=== PATIENT | male | born 1970 | race Caucasian/White ===

== ENCOUNTER → 2016-12-11 | Outpatient (CLI) | payer BC ==
--- NOTE | 2016-12-11 09:43 | US ---
EXAMINATION TYPE: US prostate transrectal DATE OF EXAM: 12/11/2016 9:18 AM COMPARISON: NONE CLINICAL HISTORY: N40.1 Begin prostatic hyperplasia. slow flow even with meds, nocturia This examination was performed using the transrectal probe. EXAM MEASUREMENTS: Gland Size: 3.9 x 4.7 x 2.9cm Volume: 28.8 Predicted PSA: 3.4 Actual PSA (if available):0.9 Findings: Heterogeneous PZ with no definite lesions seen. Central glandular calcifications. Seminal v esicles are symmetric and unremarkable. IMPRESSION: No distinct lesion identified. Predicted PSA = volume x 0.12 ng/ml Calculated Volume = 0.5236 x L x W x H
== END | disposition home or self-care (01) ==
LOC: RADUSMAIN 08:56
PROVIDERS: ATTEND Family Medicine
DX: N40.1 Benign prostatic hyperplasia with lower urinary tract symptoms (principal)
CPT/HCPCS: 76872

== ENCOUNTER → 2018-11-13 | Day surgery (SDC) | payer BC ==
[2018-11-11 10:28] VITALS: BMI 28.7
[~2018-11-13] MED LIST: LACTATED RINGERS 1,000 ML IV SCH; LIDOCAINE 1% 20 ML VIAL (10MG/ML) FOR IV START INTRADERMA PRN; PROPOFOL 10 MG/ML 20 ML VIAL IV ONE
[2018-11-13 11:13] VITALS: RESP 16; TEMP 98.9
--- NOTE | 2018-11-13 11:42 | P.PCN ---
Date of Procedure: 11/13/18 Procedure(s) Performed: BRIEF HISTORY: Patient is a 48-year-old pleasant male, scheduled for an elective colonoscopy as a part of screening for colorectal neoplasia. He does have family history of colon cancer diagnosed in both of his grandparents in the 60s. PROCEDURE PERFORMED: Colonoscopy. PREOPERATIVE DIAGNOSIS: Screening for colon cancer/family history of colon cancer. IV sedation per Anesthesia. PROCEDURE: After informed consent was obtained, the patient, was brought into the endoscopy unit. IV sedation was administered by Anesthesia under continuous monitoring. Digital rectal examination was normal. Initially the Olympus CF- 160 flexible video colonoscope was then inserted in the rectum, gradually advanced into the cecum without any difficulty. Careful examination was performed as the scope was gradually being withdrawn. Ileocecal valve and the appendiceal orifice were visualized and appeared normal. Prep was excellent. Mucosa of the cecum, ascending colon, transverse colon, descending colon, sigmoid colon, and rectum appeared normal. Retroflexion was performed in the rectum and small internal hemorrhoids were seen. The patient tolerated the procedure well. IMPRESSION: Normal-appearing colon from rectum to cecum with no evidence of colorectal neoplasia. Small internal hemorrhoids. RECOMMENDATIONS: Findings of this examination were discussed with the patient as well as his family. He was advised to have a repeat screening coloscopy in 5 years because of the family history of colon cancer.
[2018-11-13 12:03] VITALS: BP 131/90; PULSE 79
== END ==
LOC: ORWHC2ENDO 10:48
PROVIDERS: ATTEND Internal Medicine Gastroenterology
DX: Z12.11 Encounter for screening for malignant neoplasm of colon (principal); Z80.0 Family history of malignant neoplasm of digestive organs; K64.8 Other hemorrhoids
CPT/HCPCS: 88305; 45380; J2704

== ENCOUNTER → 2023-05-14 | Outpatient (CLI) | payer BC ==
[2023-05-14 10:58] LABS: Basophils # (A) 0.05 X 10*3/uL (0.00-0.10); Basophils % (A) 0.7 %; Eosinophils # (A) 0.19 X 10*3/uL (0.04-0.35); Eosinophils % (A) 2.8 %; HCT 48.2 % (39.6-50.0); HGB 15.8 d/dL (12.0-15.0); Lymphocytes # (A) 1.42 X 10*3/uL (0.90-5.00); Lymphocytes % (A) 20.9 %; MCH 30.3 pg (27.0-32.0); MCHC 32.8 d/dL (32.0-37.0); MCV 92.5 FL (80.0-97.0); Mean Platelet Volume 10.1 FL (9.5-12.2); Monocytes # (A) 0.48 X 10*3/uL (0.20-1.00); Monocytes % (A) 7.1 %; NRBC Per 100 WBC 0 X 10*3/uL (0.00-0.01); Neutrophils # (A) 4.65 X 10*3/uL (1.80-7.70); Neutrophils % (A) 68.4 %; Platelet Count 214 X 10*3/uL (140-440); RBC 5.21 X 10*6/uL (4.40-5.60); RDW 12.5 % (11.5-14.5)
== END | disposition home or self-care (01) ==
LOC: LABPAT 07:05
PROVIDERS: ATTEND Surgery
DX: Z01.812 Encounter for preprocedural laboratory examination (principal); I51.7 Cardiomegaly; R94.31 Abnormal electrocardiogram [ECG] [EKG]
CPT/HCPCS: 85025; 93005

== ENCOUNTER 2023-05-23 10:06 | Day surgery (SDC) | payer BC ==
[2023-05-15 16:14] VITALS: BMI 27.5
--- NOTE | 2023-05-23 09:59 | P.GSHP ---
History of Present Illness H&P Date: 05/23/23 Chief Complaint: Left inguinal hernia 53-year-old male seen in the office in March. Patient with complaints of a left groin bulge since earlier this year. Mild soreness with lifting. No history of previous hernias. No nausea or vomiting. Past Medical History Past Medical History: Prostate Disorder Additional Past Medical History / Comment(s): INGUINAL AND UMBILICAL HERNIAS History of Any Multi-Drug Resistant Organisms: None Reported Past Surgical History: Orthopedic Surgery Additional Past Surgical History / Comment(s): RT SHOULDER,BILAT KNEE,COLONOSCOPY Past Anesthesia/Blood Transfusion Reactions: No Reported Reaction Smoking Status: Never smoker - Past Family History Mother Family Medical History: No Reported History Medications and Allergies Home Medications Medication Instructions Recorded Confirmed Type Tamsulosin [Flomax] 0.8 mg PO HS 05/15/23 05/15/23 History buPROPion HCL [Wellbutrin XL] 150 mg PO DAILY 05/15/23 05/15/23 History Allergies Allergy/AdvReac Type Severity Reaction Status Date / Time No Known Allergies Allergy Verified 05/15/23 16:06 Surgical - Exam Physical exam: General: Well-developed, well-nourished HEENT: Normocephalic, sclerae nonicteric Abdomen: Nontender, nondistended, reducible umbilical hernia, small moderate- sized left inguinal hernia, possible small right inguinal hernia Extremities: No edema Neuro: Alert and oriented Assessment and Plan (1) Left inguinal hernia Narrative/Plan: 53-year-old male with left inguinal hernia and umbilical hernia. We'll proceed with laparoscopic da Yfn assisted repair left inguinal hernia with mesh, possible open, possible bilateral, with open repair umbilical hernia with possible mesh. Risks of bleeding, infection, recurrence, bladder and bowel injury, numbness, nerve injury, conversion to an open procedure were discussed with the patient. The patient understands and wishes to proceed. Status: Acute Code(s): K40.90 - UNIL INGUINAL HERNIA, W/O OBST OR GANGR, NOT SPCF RECUR SNOMED Code(s): 694402839
[~2023-05-23 10:06] MED LIST changes: +ACETAMINOPHEN TAB 500 MG TAB PO PRN; +HEPARIN SODIUM,PORCINE/PF 5,000 UNIT/0.5 ML SYRINGE SQ PRN; -LACTATED RINGERS 1,000 ML IV SCH; -LIDOCAINE 1% 20 ML VIAL (10MG/ML) FOR IV START INTRADERMA PRN; -PROPOFOL 10 MG/ML 20 ML VIAL IV ONE
[2023-05-23] MEDS ORDERED: ONDANSETRON 4 MG/2 ML VIAL IVP ONE (10:22)
[2023-05-23] MEDS ORDERED: LACTATED RINGERS 1,000 ML IV SCH (10:22)
[2023-05-23] MEDS ORDERED: HYDROmorphone 0.5 MG/0.5 ML SYRINGE IVP PRN (10:22)
[2023-05-23] MEDS ORDERED: DEXAMETHASONE SOD PHOSPHATE 4 MG/ML 1 ML VIAL IV ONE (10:22)
[2023-05-23 10:54] LABS: Glucose,Whole Blood 85 mg/dL (70-110)
[2023-05-23] MEDS ORDERED: TAMSULOSIN 0.4 MG CAP.ER.24H PO ONE (11:13)
[2023-05-23] MEDS ORDERED: LIDOCAINE 2% INJ 20 MG/ML (2 ML VIAL) ONE (11:40)
[2023-05-23] MEDS ORDERED: MIDAZOLAM 2 MG/2 ML VIAL ONE (11:40)
[2023-05-23] MEDS ORDERED: KETOROLAC 15 MG/ML 1 ML VIAL ONE (11:40)
[2023-05-23] MEDS ORDERED: SUCCINYLCHOLINE CHLORIDE 200 MG/10 ML VIAL IV ONE (11:40)
[2023-05-23] MEDS ORDERED: NEOSTIGMINE 1 MG/ML 10 ML VIAL ONE (11:40)
[2023-05-23] MEDS ORDERED: HYDROmorphone (PF) 1 MG/ML ONE (11:40)
[2023-05-23] MEDS ORDERED: PROPOFOL 10 MG/ML 20 ML VIAL IV ONE (11:40)
[2023-05-23] MEDS ORDERED: fentaNYL (PF) 50 MCG/ML 2 ML AMP ONE (11:40)
[2023-05-23] MEDS ORDERED: ROCURONIUM 10 MG/ML (5 ML VIAL) IV ONE (11:40)
[2023-05-23] MEDS ORDERED: GLYCOPYRROLATE 0.2 MG/ML 2 ML VIAL ONE (11:40)
[2023-05-23] MEDS ORDERED: BUPIVACAINE (PF) 0.25% 30 ML VIAL SQ ONE (12:41)
[2023-05-23] MEDS ORDERED: HYDROmorphone 0.5 MG/0.5 ML SYRINGE IVP ONE ×2 (13:58→14:41)
[2023-05-23 14:07] VITALS: TEMP 97.7
[2023-05-23 14:08] VITALS: RESP 16
--- NOTE | 2023-05-23 14:09 | P.OP ---
Date of Procedure: 05/23/23 Procedure(s) Performed: PREOPERATIVE DIAGNOSIS: Left inguinal hernia, umbilical hernia POSTOPERATIVE DIAGNOSIS: Bilateral inguinal hernia, umbilical hernia PROCEDURE: Laparoscopic da Yfn assisted repair bilateral inguinal hernia with mesh, open repair umbilical hernia SURGEON: Dr. Matias ANESTHESIA: General OPERATIVE PROCEDURE DETAILS: Patient was placed in the operating table in the supine position. The patient was placed under general anesthesia. The abdomen was prepped and draped in usual sterile fashion. A small curvilinear supraumbilical incision was made. The hernia was dissected away from the umbilicus. Fascial defect measured 1 cm. The hernia sac was excised. Under direct visualization the 8 mm trocar was placed and full insufflation took place to 15 mmHg. 2 additional 8 mm trochars were placed in the right upper quadrant and left upper quadrant under visualization. The robotic arms were then brought in and docked into place. The fenestrated bipolar was used in the left arm and the laparoscopic mary ellen was utilized in the right arm. A 30 8 mm scope was used in the up position. The peritoneal cavity was inspected. The patient had a moderate sized left direct inguinal hernia, a small moderate sized indirect left inguinal hernia, and a small sized right direct inguinal hernia. A incision was created on the peritoneum across the lower abdomen superior to the bladder. The preperitoneal dissection took place bilaterally at that time. All hernia sacs were fully dissected. Once we had full dissection 2 separate 15 x 10 mm Progrip mesh were placed within the abdomen crossing one another in the midline. These were then sutured to the Maximus's ligament across the pubic symphysis to the opposite side using a running 30 absorbable V lock suture. The same stitch was then brought to the midline and the mesh was sutured to the abdominal wall in the midline superiorly. This covered all hernia spaces nicely. The peritoneal defect was then closed bilaterally using a absorbable 2- 0 VLok suture. The hernia sacs were incorporated into the peritoneal closure to help prevent future recurrence. The pneumoperitoneum was then evacuated. The fascia at the umbilicus was closed using [id number] Ethibond sutures. The umbilicus was sutured back down to the fascia using a 3-0 Vicryl suture. The subcutaneous tissues were closed using 3-0 Vicryl sutures. The skin of all 3 sites was closed using a 4-0 Monocryl stitch. Skin glue was then applied. TYPE OF MESH USED: Progrip 15 x 10 LOCATION OF MESH: Preperitoneal/sub-lay FIXATION: Absorbable 30V lock PREOPERATIVE DISCUSSION ON SMOKING CESSASTION: Yes PREOPERATIVE DISCUSSION ON MORBID OBESITY: Yes PREOPERATIVE DISCUSSION ON APPROPRIATE USE OF NARCOTIC USE: Yes PREOPERATIVE EDUCATION: Multi Modal, Smoking Cessation and Weight Loss with BMI over 35. DISPOSITION: Stable to recovery room
[2023-05-23] MEDS ORDERED: ACETAMINOPHEN TAB 325 MG TAB PO SCH (14:15)
[2023-05-23] MEDS ORDERED: LACTATED RINGERS 1,000 ML IV ONE (15:14)
[2023-05-23 15:59] VITALS: BP 109/69; PULSE 76
[2023-05-23] MEDS ORDERED: IBUPROFEN 600 MG TAB PO SCH (17:15)
== END 2023-05-23 16:22 | disposition home or self-care (01) ==
LOC: OR 10:06
PROVIDERS: ATTEND Surgery
DX: K40.20 Bilateral inguinal hernia, without obstruction or gangrene, not specified as recurrent (principal); K42.9 Umbilical hernia without obstruction or gangrene; F12.90 Cannabis use, unspecified, uncomplicated; N40.0 Benign prostatic hyperplasia without lower urinary tract symptoms; Z79.899 Other long term (current) drug therapy
CPT/HCPCS: 49591; 49650; S2900; 86850; 86900; 86901; 88302

== ENCOUNTER 2024-11-16 10:31 | Day surgery (SDC) | payer BC ==
[~2024-11-16 10:31] MED LIST changes: -ACETAMINOPHEN TAB 500 MG TAB PO PRN; -HEPARIN SODIUM,PORCINE/PF 5,000 UNIT/0.5 ML SYRINGE SQ PRN; +LACTATED RINGERS 1,000 ML IV SCH; +LIDOCAINE 1% (10MG/ML) FOR IV START INTRADERMA PRN
[2024-11-16 11:17] VITALS: RESP 16; TEMP 97.9
[2024-11-16] MEDS: IV FLUID CONTINUATION 1,000 ML IV ONE ×2 (11:18→12:15)
[2024-11-16] MEDS ORDERED: PROPOFOL 10 MG/ML 20 ML VIAL IV ONE (12:16)
--- NOTE | 2024-11-16 12:35 | P.PCN ---
Date of Procedure: 11/16/24 Procedure(s) Performed: BRIEF HISTORY: Patient is a 54-year-old pleasant white meat scheduled for an elective colonoscopy as a part of screening for colon cancer and family history of colon cancer. There is a family history of colon cancer diagnosed in both of his grandparents in their early 60s. Last colonoscopy was 6 years ago. PROCEDURE PERFORMED: Colonoscopy. PREOPERATIVE DIAGNOSIS: Screening for colon cancer and family history of colon cancer.. IV sedation per Anesthesia. PROCEDURE: After informed consent was obtained, the patient, was brought into the endoscopy unit. IV sedation was administered by Anesthesia under continuous monitoring. Digital rectal examination was normal. Initially the Olympus CF-160 flexible video colonoscope was then inserted in the rectum, gradually advanced into the cecum without any difficulty. Careful examination was performed as the scope was gradually being withdrawn. Ileocecal valve and the appendiceal orifice were visualized and appeared normal. Prep was excellent. Mucosa of the cecum, ascending colon, transverse colon, descending colon, sigmoid colon, and rectum appeared normal. Sigmoid diverticulosis. Retroflexion was performed in the rectum and grade 2 internal hemorrhoids were seen. The patient tolerated the procedure well. IMPRESSION: Normal-appearing colon from rectum to cecum no evidence of colorectal neoplasia Scattered sigmoid diverticulosis Grade 2 internal internal hemorrhoids. RECOMMENDATIONS: Findings of this examination were discussed with the patient as well as his family.. He was advised to have repeat colonoscopy in 5 years because of a family history of colon cancer
[2024-11-16 12:56] VITALS: BP 132/83; PULSE 77
== END 2024-11-16 13:12 | disposition home or self-care (01) ==
LOC: ORWHC2ENDO 10:31
PROVIDERS: ATTEND Internal Medicine Gastroenterology
DX: Z12.11 Encounter for screening for malignant neoplasm of colon (principal); K57.30 Diverticulosis of large intestine without perforation or abscess without bleeding; K64.1 Second degree hemorrhoids; N42.9 Disorder of prostate, unspecified; Z79.899 Other long term (current) drug therapy; Z80.0 Family history of malignant neoplasm of digestive organs
CPT/HCPCS: J2704; G0105